=== PATIENT | female | born 1975 | race African-American/Black ===

== ENCOUNTER 2017-04-26 06:43 | Emergency (ER) | payer BC ==
[~2017-04-26] VITALS: Ht 162.6 cm; Wt 57.6 kg
[~2017-04-26 06:43] MED LIST: ORUDIS75 M1 PO; VICODIN 5/1 TAB 5/50 PO
== END 2017-04-26 08:45 | disposition home or self-care (01) ==
LOC: CED 06:43
DX: J06.9 Acute upper respiratory infection, unspecified (principal); F17.200 Nicotine dependence, unspecified, uncomplicated
CPT/HCPCS: 87651; 99283